=== PATIENT | female | born 1995 | race Caucasian/White ===

== ENCOUNTER 2024-08-05 12:09 | Emergency (ER) | payer OTHER ==
[~2024-08-05] VITALS: Ht 154.9 cm; Wt 54.3 kg
[~2024-08-05 12:09] MED LIST: AMOXICILLIN875 MG PO; DIFLUCAN200 MG PO; ONDANSETRON ODT8 MG PO
[2024-08-05] MEDS ORDERED: FOLIC ACID1 MG PO (12:22)
[2024-08-05] MEDS ORDERED: ondansetron HCL 4 MG/2 ML VIAL IV ONE (12:30)
[2024-08-05 12:36] LABS: BASOPHILS 0.6 % (0-2); EOSINOPHILS 0.5 % (0-6); HEMATOCRIT 41.5 % (35.0-50.0); HEMOGLOBIN 14.2 g/dL (12.0-18.0); LYMPHOCYTES 22.8 % (24-44); MCH 30.4 (27-36); MCHC 34.1 g/dl (30-36); MCV 89.1 fl (81-99); MONOCYTES 6.5 % (0-12); NEUTROPHILS 69.6 % (39-80); PLATELET COUNT 307 K/uL (140-440); RBC 4.66 M/ul (4.3-5.7); RDW 13.5 (10.5-15.0)
[2024-08-05 12:49] LABS: BILIRUBIN, URINE NEGATIVE (negative); BLOOD/HGB, URINE NEGATIVE (Negative); KETONE, URINE NEGATIVE (Negative); LEUK ESTERASE, URINE MODERATE (negative); NITRITE, URINE NEGATIVE (negative); PH, URINE 7.5 (5-7)
[2024-08-05 12:58] LABS: BACTERIA, URINE 1+ /hpf (negative); CASTS, URINE NONE SEEN \\lpf; CRYSTALS, URINE NONE SEEN (0-1+); EPITHELIAL CELLS, URINE SQUAMOUS 4+ /lpf (0-1+); RED BLOOD CELLS, URINE 0-1 /hpf (0-5)
[2024-08-05 12:59] LABS: COLLECTION TYPE, URINE CLEAN CATCH; REFLEX CULTURE, URINE No (No)
[2024-08-05] MEDS ORDERED: METOCLOPRAMIDE HCL 10 MG/2 ML SDV IV ONE (13:00)
[2024-08-05] MEDS ORDERED: SODIUM CHLORIDE 0.9% 1,000 ML IV ONE (13:00)
[2024-08-05 13:12] LABS: ALBUMIN 3.3 g/dL (3.4-5.0); ALBUMIN/GLOBULIN RATIO 0.89 (1.1-2.4); ANION GAP 12.7 (7-21); BILIRUBIN, TOTAL 0.3 ng/dL (0.2-1.0); BUN/CREATININE RATIO 5.26 (6.0-28.6); CALCIUM 9.3 mg/dL (8.5-10.1); CREATININE, SERUM 0.57 mg/dL (0.55-1.02); POTASSIUM 3.7 mmol/L (3.5-5.1)
[2024-08-05 13:39] LABS: ABO B; RH POSITIVE
[2024-08-05] MEDS ORDERED: ONDANSETRON ODT8 MG PO (14:31)
[2024-08-05 14:40] VITALS: BP 111/68
== END 2024-08-05 14:41 | disposition home or self-care (01) ==
LOC: ED 12:09
PROVIDERS: Emergency Medicine
DX: O99.891 Other specified diseases and conditions complicating pregnancy (principal); R10.2 Pelvic and perineal pain; J45.909 Unspecified asthma, uncomplicated; Z3A.15 15 weeks gestation of pregnancy
CPT/HCPCS: 36415; 76815; 80053; 81001; 83690; 84702; 85025; 86900; 86901; 96374; 99284-25; J2765; J7030

== ENCOUNTER 2024-12-05 21:41 | Emergency (ER) | payer OTHER ==
[~2024-12-05] VITALS: Ht 154.9 cm; Wt 65.8 kg
[~2024-12-05 21:41] MED LIST changes: +FOLIC ACID1 MG PO
[2024-12-05] MEDS ORDERED: ondansetron HCL 4 MG/2 ML VIAL IV ONE (22:00)
[2024-12-05] MEDS ORDERED: SODIUM CHLORIDE 0.9% 1,000 ML IV PRN (22:00)
[2024-12-05 22:04] LABS: EOSINOPHILS 0.5 % (0-6); HEMATOCRIT 36.9 % (35.0-50.0); HEMOGLOBIN 12.1 g/dL (12.0-18.0); LYMPHOCYTES 23.2 % (24-44); MCH 26.4 (27-36); MCHC 32.7 g/dl (30-36); MCV 80.6 fl (81-99); MONOCYTES 7.7 % (0-12); NEUTROPHILS 67.6 % (39-80); PLATELET COUNT 397 K/uL (140-440); RBC 4.58 M/ul (4.3-5.7); RDW 13.3 (10.5-15.0)
[2024-12-05 22:05] VITALS: BP 131/83
[2024-12-05 22:23] LABS: ALBUMIN 2.2 g/dL (3.4-5.0); ALBUMIN/GLOBULIN RATIO 0.51 (1.1-2.4); ANION GAP 14.8 (7-21); BILIRUBIN, TOTAL 0.4 ng/dL (0.2-1.0); BUN/CREATININE RATIO 3.22 (6.0-28.6); CALCIUM 8.4 mg/dL (8.5-10.1); CREATININE, SERUM 0.62 mg/dL (0.55-1.02); POTASSIUM 2.8 mmol/L (3.5-5.1); PROTEIN, TOTAL 6.5 g/dL (6.4-8.2)
== END 2024-12-05 22:05 | disposition home or self-care (01) ==
LOC: ED 21:41
PROVIDERS: Family Medicine
DX: O99.891 Other specified diseases and conditions complicating pregnancy (principal); R10.9 Unspecified abdominal pain; Z3A.33 33 weeks gestation of pregnancy
CPT/HCPCS: 80053; 85025; 96374; 99283-25; J2405; J7030

== ENCOUNTER 2024-12-21 20:08 | Inpatient (IN) | payer OTHER ==
[~2024-12-21] VITALS: Ht 154.9 cm; Wt 68.0 kg
[2024-12-21] MEDS ORDERED: ACETAMINOPHEN 500 MG TAB PO ONE (21:00)
[2024-12-21] MEDS ORDERED: ONDANSETRON 4 MG TAB ODT SL ONE (21:30)
[2024-12-21] MEDS ORDERED: CALCIUM CARBONATE 500 MG CHEW PO PRN (22:00)
[2024-12-21] MEDS ORDERED: LACTATED RINGER'S 1,000 ML IV PRN (22:00)
[2024-12-21] MEDS ORDERED: LACTATED RINGER'S 1,000 ML IV SCH (22:00)
[2024-12-21] MEDS ORDERED: fentaNYL citrate 100 MCG/2 ML VIAL IV PRN (22:00)
[2024-12-21] MEDS ORDERED: PENICILLIN G POTASSIUM 5 MUNITS/110 ML PIGGYBACK IV ONE (22:00)
[2024-12-21] MEDS ORDERED: MAGNESIUM HYDROXIDE/AL HYDROX 30 ML CUP PO PRN (22:00)
[2024-12-21] MEDS ORDERED: OXYTOCIN/0.9 % SODIUM CHLORIDE 30 UNITS/500 ML BAG IV SCH (22:00)
[2024-12-21] MEDS ORDERED: BETAMETHASONE SOD PHOS/ACETATE 6 MG/ML ML IM SCH (22:00)
[2024-12-21 22:38] LABS: HEMATOCRIT 35.3 % (35.0-50.0); HEMOGLOBIN 11.5 g/dL (12.0-18.0); MCH 25.9 (27-36); MCHC 32.7 g/dl (30-36); MCV 79.1 fl (81-99); RBC 4.46 M/ul (4.3-5.7); RDW 14.5 (10.5-15.0)
[2024-12-21 23:00] LABS: AMPHETAMINES, URINE NEGATIVE (NEGATIVE); BARBITURATES, URINE NEGATIVE (NEGATIVE); BENZODIAZEPINE, URINE NEGATIVE (NEGATIVE); BUPRENORPHINE, URINE NEGATIVE (NEGATIVE); CANNABINOID, URINE POSITIVE (NEGATIVE); COCAINE, URINE NEGATIVE (NEGATIVE); ECSTASY, URINE NEGATIVE (NEGATIVE); FENTANYL, URINE NEGATIVE (NEGATIVE); METHADONE, URINE NEGATIVE (NEGATIVE); OPIATES, URINE NEGATIVE (NEGATIVE); OXYCODONE, URINE NEGATIVE (NEGATIVE); PHENCYCLIDINE, URINE NEGATIVE (NEGATIVE)
[2024-12-21 23:16] LABS: ABO B; ANTIBODY SCREEN NEGATIVE; RH POSITIVE
[2024-12-21 23:38] VITALS: BP 115/79
[2024-12-21] MEDS ORDERED: PRENATAL ONE T1 EAC1 PO (23:43)
[2024-12-22] MEDS ORDERED: PENICILLIN G POTASSIUM 5 MUNITS/10 ML VIAL ONE (01:21)
[2024-12-22] MEDS ORDERED: PENICILLIN G POTASSIUM 2.5 MUNITS in DEXTROSE 5% 100 ML IV SCH (02:00)
[2024-12-22] MEDS ORDERED: ROPIVACAINE 0.2% 200 ML BAG EPIDURAL SCH (16:00)
[2024-12-22] MEDS ORDERED: LACTATED RINGER'S 2,000 ML IV ONE (16:00)
[2024-12-22] MEDS ORDERED: ePHEDrine sulfate 5 MG/ML SYRINGE IV PRN (16:00)
[2024-12-22] MEDS ORDERED: LACTATED RINGER'S 500 ML IV PRN (16:00)
--- NOTE | 2024-12-22 17:16 | PR ---
[facility] [address], [place] [address] Signed Progress Notes IP Datetime Report Generated by RADN: 12/22/2024 17:16 PROGRESS NOTES: [id number] Impression: Reassuring Heart Rate Procedures: Sterile Vag Exam Plan: Continue Present Management Other Plans: Continue PCN, is still 24 hours post BMZ will give Informed Consent Obtain: Vaginal Delivery; Risks, Benefits and Alternatives Discussed VITAL SIGNS: [id number] EXAM: [id number] Dilatation: 6.0 Effacement: 60 Station: -2 Contractions: Rare MEMBRANES: [id number] Comments: Assumed care for patient. Pt doing well. Comfortable w/ epidural. Cx unchanged and contractions rare; every _10+ minutes. Sleeping. Pt on PCN prophylaxis and due for next dose of betamethasone at _20:00. Bulging membranes noted. Consider AROM / pitocin augmentation after 2nd dose betamethasone. Pt understands and agrees. FETUS A: [id number] FHR Baseline: 120 Variability: Moderate 6-25bpm Accelerations: 15X15 Decelerations: None FHR Category: Category I Presentation: Vertex Comments on Fetus A: REassuring FETUS B: [id number] Signing Physician: Elsie Castaneda DO Copies: ~ *Electronically Signed* 12/22/24 3140 ELSIE CASTANEDA (MARIO) DO PATIENT NAME: JASMINE HOWARD PROGRESS NOTE DATE OF : [birth year] PHYSICIAN: ELSIE CASTANEDA (JD) DO RPT #: [id number] REPORT IS CONFIDENTIAL AND NOT TO BE RELEASED WITHOUT AUTHORIZATION
--- NOTE | 2024-12-22 22:21 | PR ---
[facility] [address], [place] [address] Signed Progress Notes IP Datetime Report Generated by CPN: 12/22/2024 22:21 PROGRESS NOTES: [id number] Impression: Normal Progression of Labor Procedures: Artificial ROM; Sterile Vag Exam Plan: Continue Present Management; Anticipate Vaginal Delivery Other Plans: Continue PCN, is still 24 hours post BMZ will give Informed Consent Obtain: Vaginal Delivery; Risks, Benefits and Alternatives Discussed VITAL SIGNS: [id number] EXAM: [id number] Dilatation: 7.0 Effacement: 60 Station: -2 Contractions: q 3 min MEMBRANES: [id number] Comments: Pt seen and examined. Doing well. S/P 2nd dose of betamethazone. Reviewed labor progress and recommended AROM. Pt understands and agrees. Vertex well applied and bulging membranes. AROM for large amount of clear fluid. Continue expectant management and anticipate FETUS A: [id number] FHR Baseline: 120 Variability: Moderate 6-25bpm Accelerations: 15X15 Decelerations: None FHR Category: Category I Presentation: Vertex Comments on Fetus A: REassuring FETUS B: [id number] Signing Physician: Elsie Castaneda DO Copies: ~ *Electronically Signed* 12/22/242220 ELSIE CASTANEDA (MARIO) DO PATIENT NAME: JASMINE HOWARD PROGRESS NOTE DATE OF : 94 PHYSICIAN: ELSIE CASTANEDA (JD) DO RPT #: [id number] REPORT IS CONFIDENTIAL AND NOT TO BE RELEASED WITHOUT AUTHORIZATION
[2024-12-23] MEDS ORDERED: MAGNESIUM HYDROXIDE/AL HYDROX 30 ML CUP PO PRN (02:30)
[2024-12-23] MEDS ORDERED: WITCH HAZEL/GLYCERIN 1 EA PAD TOP PRN (02:30)
[2024-12-23] MEDS ORDERED: OXYCODONE/APAP 5/325 TAB PO PRN (02:30)
[2024-12-23] MEDS ORDERED: HYDROCORTISONE ACETATE 25 MG SUPP PR PRN (02:30)
[2024-12-23] MEDS ORDERED: HYDROCODONE/ACETA 5/325 TAB PO PRN (02:30)
[2024-12-23] MEDS ORDERED: OXYTOCIN/0.9 % SODIUM CHLORIDE 500 ML IV SCH ×2 (02:30→06:15)
[2024-12-23] MEDS ORDERED: IBUPROFEN 600 MG TAB PO PRN (02:30)
[2024-12-23] MEDS ORDERED: CALCIUM CARBONATE 500 MG CHEW PO PRN (02:30)
[2024-12-23] MEDS ORDERED: MAGNESIUM HYDROXIDE 30 ML UDC PO PRN (02:30)
[2024-12-23] MEDS ORDERED: BENZOCAINE 60 ML AEROSOL TOP PRN (02:30)
[2024-12-23] MEDS ORDERED: ACETAMINOPHEN 325 MG TAB PO PRN (02:30)
[2024-12-23 05:30] LABS: HEMATOCRIT 31.6 % (35.0-50.0); HEMOGLOBIN 10.1 g/dL (12.0-18.0); MCH 25.2 (27-36); MCV 78.8 fl (81-99); PLATELET COUNT 314 K/uL (140-440); RBC 4.02 M/ul (4.3-5.7); RDW 14.5 (10.5-15.0)
[2024-12-23 05:40] LABS: SMEAR REVIEW BLOOD SEE COMMENTS
[2024-12-23] MEDS ORDERED: miSOPROStoL 200 MCG TAB PR ONE (08:30)
[2024-12-23] MEDS ORDERED: SENNOSIDES/DOCUSATE 1 EA TAB PO SCH (09:00)
--- NOTE | 2024-12-24 21:36 | PR ---
[facility] [address], [place] [address] Signed PP Progress Notes Datetime Report Generated by CPN: 12/24/2024 21:36 SUBJECTIVE: [id number] Pain: Within Normal Limits Nausea/Vomiting: Denies Flatus: Yes Bowel Movement: Yes Vital Signs: [id number] Vital Signs: Reviewed; Within Normal Limits EXAM: Ongoing Cardiovascular: Normal Respiratory: Normal Abdomen/Uterus: Normal Lochia: Normal Vulva/Perineum: Not Done Breasts: Not Done CVA Tenderness: Normal Extremities: Normal Incision: Not Applicable Progress: Normal Exam Comments: Fundus firm U-2 nontender IMPRESSION/PLAN/PROCEDURES: [id number] Impression: Normal Progression Plan: Discharge Progress Notes: Pt seen and examined. Doing well. Ambulating, voiding, and tolerating full diet. Pain and lochia minimal. . No fevers/chills. Discharge mom to border status. Anticipate discharge in 1-2 days per peds. Reviewed d/c instructions and medications. Undecided on pp contraception. No questions or concerns. Signing Physician: Elsie Castaneda DO Copies: ~ *Electronically Signed* 12/24/24 7247 ELSIE CASTANEDA (MARIO) DO PATIENT NAME: JASMINE HOWARD PROGRESS NOTE DATE OF : 94 PHYSICIAN: ELSIE CASTANEDA (JD) DO RPT #: [id number] REPORT IS CONFIDENTIAL AND NOT TO BE RELEASED WITHOUT AUTHORIZATION
--- NOTE | 2024-12-25 08:05 | PR ---
[facility] [address], [place] [address] Signed PP Progress Notes Datetime Report Generated by CPN: 12/25/2024 08:04 SUBJECTIVE: [id number] Pain: Within Normal Limits Nausea/Vomiting: Denies Flatus: Yes Bowel Movement: Yes Vital Signs: [id number] Vital Signs: Reviewed; Within Normal Limits EXAM: Ongoing Cardiovascular: Normal Respiratory: Normal Abdomen/Uterus: Normal Lochia: Normal Vulva/Perineum: Not Done Breasts: Not Done CVA Tenderness: Normal Extremities: Normal Incision: Not Applicable Progress: Normal Exam Comments: Fundus firm U-2 nontender IMPRESSION/PLAN/PROCEDURES: [id number] Impression: Normal Progression Plan: Discharge Progress Notes: Pt seen and examined. Doing well. Ambulating, voiding, and tolerating full diet. Pain and lochia minimal. and bottle feeding. will continue inpatient care due to some weight loss / feeding issues. Reviewed d/c instructions / medications. No questions or concerns. Planning depo-provera for pp contraception Signing Physician: Elsie Castaneda DO Copies: ~ *Electronically Signed* 12/25/24 0804 ELSIE CASTANEDA (MARIO) DO PATIENT NAME: JASMINE HOWARD PROGRESS NOTE DATE OF : 94 PHYSICIAN: ELSIE CASTANEDA) DO RPT #: [id number] REPORT IS CONFIDENTIAL AND NOT TO BE RELEASED WITHOUT AUTHORIZATION
== END 2024-12-26 18:15 | disposition home or self-care (01) | DRG 807 ==
LOC: FBCO 20:08 → FBC 21:47 → MS 21:47 → FBC 12-24 12:20 → MS 12-24 12:20 → FBC 12-25 10:45
PROVIDERS: Obstetrics & Gynecology; ADMIT Obstetrics & Gynecology; ATTEND Obstetrics & Gynecology
PROC: 3E0R3BZ Introduction of Anesthetic Agent into Spinal Canal, Percutaneous Approach (ICD-10-PCS; principal; 2024-12-23)
PROC: 10907ZC Drainage of Amniotic Fluid, Therapeutic from Products of Conception, Via Natural or Artificial Opening (ICD-10-PCS; principal; 2024-12-23)
PROC: 0KQM0ZZ Repair Perineum Muscle, Open Approach (ICD-10-PCS; principal; 2024-12-23)
PROC: 00HU33Z Insertion of Infusion Device into Spinal Canal, Percutaneous Approach (ICD-10-PCS; principal; 2024-12-23)
PROC: 10E0XZZ Delivery of Products of Conception, External Approach (ICD-10-PCS; principal; 2024-12-23)
DX: O60.14X0 Preterm labor third trimester with preterm delivery third trimester, not applicable or unspecified (principal); Z37.0 Single live birth; O69.81X0 Labor and delivery complicated by cord around neck, without compression, not applicable or unspecified; O70.1 Second degree perineal laceration during delivery; Z3A.35 35 weeks gestation of pregnancy
CPT/HCPCS: 01960; 36415; 59025; 80307; 85027; 85060; 86850; 86900; 86901; 94799; A9270; G0463; J0702; J2540; J7121

== ENCOUNTER 2025-07-28 14:20 | Emergency (ER) | payer OTHER ==
[~2025-07-28] VITALS: Ht 152.4 cm; Wt 55.0 kg
[~2025-07-28 14:20] MED LIST changes: +PRENATAL ONE T1 EAC1 PO
[2025-07-28 16:59] LABS: BLOOD/HGB, URINE NEGATIVE (Negative); KETONE, URINE >=80 (Negative); LEUK ESTERASE, URINE TRACE (negative); NITRITE, URINE NEGATIVE (negative)
[2025-07-28 17:15] LABS: EPITHELIAL CELLS, URINE SQUAMOUS 1+ /lpf (0-1+)
[2025-07-28 17:16] LABS: BACTERIA, URINE NONE SEEN /hpf (negative); CASTS, URINE NONE SEEN \\lpf; CRYSTALS, URINE NONE SEEN (0-1+); REFLEX CULTURE, URINE No (No)
[2025-07-28 17:17] LABS: BASOPHILS 1.0 % (0.1-1.2); EOSINOPHILS 0.6 % (0.7-5.8); LYMPHOCYTES 21.6 % (19.3-51.7); MCH 18.9 PG (25.6-32.2); MCHC 28.9 g/dL (32.2-35.5); MCV 65.4 fL (79.4-94.8); MONOCYTES 6.8 % (4.7-12.5); NEUTROPHILS 69.9 % (34.0-71.1); RBC 5.03 M/uL (3.93-5.22)
[2025-07-28] MEDS ORDERED: IBUPROFEN600 MG PO (17:27)
[2025-07-28] MEDS ORDERED: CYCLOBENZAPRINE5 MG PO (17:28)
[2025-07-28 17:33] LABS: ALT (SGPT) 27.0 U/L (14-59); AST (SGOT) 22.0 U/L (15-37); GLOMERULAR FILTRATION RATE,EST 120.0 mL/min (>60); PROTEIN, TOTAL 7.5 g/dL (6.4-8.2); UREA NITROGEN 8.0 mg/dL (7-18)
[2025-07-28] MEDS ORDERED: TRAMADOL HCL50 MG PO (19:25)
[2025-07-28 19:33] VITALS: BP 106/81
== END 2025-07-28 19:34 | disposition home or self-care (01) ==
LOC: ED 14:20
PROVIDERS: Emergency Medicine
DX: S76.011A Strain of muscle, fascia and tendon of right hip, initial encounter (principal); J45.909 Unspecified asthma, uncomplicated; Z91.018 Allergy to other foods; Z79.899 Other long term (current) drug therapy; X50.0XXA Overexertion from strenuous movement or load, initial encounter
CPT/HCPCS: 36415; 74177; 80053; 81001; 84703; 85025; 85060; 99284-25; Q9967